=== PATIENT | male | born 1935 | race Caucasian/White ===

== ENCOUNTER 2017-05-12 14:11 | Emergency (ER) | payer OTHER ==
[2017-05-12 14:37] VITALS: BP 142/79; PULSE 77; RESP 16; TEMP 98.2; O2SAT 96
--- NOTE | 2017-05-12 14:51 | EDPHY ---
H & P Stated Complaint: L armpit lesion Time Seen by Provider: 05/12/17 14:42 HPI/ROS: CHIEF COMPLAINT: Thrombosis HISTORY OF PRESENT ILLNESS: Patient is an 82-year-old man who comes to the emergency department complaining of a tender hemangioma. He has a history of lung cancer and is on hospice. He has a small hemangioma underneath his left arm. He developed pain in the hemangioma yesterday. It is not erythematous or warm draining. His son is a tier truck driver and saw a picture and suspects that has for thrombosed hemorrhage. His son suggested steroid or lidocaine cream and follow up with Dermatology. The patient is not had fevers. He otherwise to not feel ill. REVIEW OF SYSTEMS: Constitutional: denies: chills, fever, recent illness, recent injury EENTM: denies: blurred vision, double vision, nose congestion Respiratory: denies: cough, shortness of breath Cardiac: denies: chest pain, irregular heart rate, lightheadedness, palpitations Gastrointestinal/Abdominal: denies: abdominal pain, diarrhea, nausea, vomiting, blood streaked stools Genitourinary: denies: dysuria, frequency, hematuria, pain Musculoskeletal: denies: joint pain, muscle pain Skin: See HPI Neurological: denies: headache, numbness, paresthesia, tingling, dizziness, weakness Hematologic/Lymphatic: denies: blood clots, easy bleeding, easy bruising Immunologic/allergic: denies: HIV/AIDS, transplant EXAM: GENERAL: Well-appearing, well-nourished and in no acute distress. HEAD: Atraumatic, normocephalic. EYES: Pupils equal round and reactive to light, extraocular movements intact, sclera anicteric, conjunctiva are normal. ENT: TMs normal, nares patent, oropharynx clear without exudates. Moist mucous membranes. NECK: Normal range of motion, supple without lymphadenopathy or JVD. LUNGS: Breath sounds clear to auscultation bilaterally and equal. No wheezes rales or rhonchi. HEART: Regular rate and rhythm without murmurs, rubs or gallops. ABDOMEN: Soft, nontender, normoactive bowel sounds. No guarding, no rebound. No masses appreciated. BACK: No CVA tenderness, no spinal tenderness, step-offs or deformities EXTREMITIES: Normal range of motion, no pitting or edema. No clubbing or cyanosis. NEUROLOGICAL: Cranial nerves II through XII grossly intact. Normal speech, normal gait. 5/5 strength, normal movement in all extremities, normal sensation PSYCH: Normal mood, normal affect. SKIN: The patient has what appears to be a red mold that is firm under his left armpit. It is minimally tender. No surrounding erythema. No sign of abscess. No cellulitis. Source: Patient Exam Limitations: No limitations - Personal History Current Tetanus Diphtheria and Acellular Pertussis (TDAP): Unsure - Medical/Surgical History Hx Asthma: No Hx Chronic Respiratory Disease: No Hx Diabetes: No Hx Cardiac Disease: No Hx Renal Disease: No Hx Cirrhosis: No Hx Alcoholism: No Hx HIV/AIDS: No Hx Splenectomy or Spleen Trauma: No Other PMH: "possible lung CA", kidney lesions, hernia repair - Family History Significant Family History: No pertinent family hx - Social History Smoking Status: Former smoker Alcohol Use: Sober Drug Use: None Constitutional: Initial Vital Signs Temperature (C) 36.8 C 05/12/17 14:32 Heart Rate 77 05/12/17 14:32 Respiratory Rate 16 05/12/17 14:32 Blood Pressure 142/79 H 05/12/17 14:32 O2 Sat (%) 96 05/12/17 14:32 O2 Delivery Mode Room Air Allergies/Adverse Reactions: Benzodiazepines Allergy (Verified 07/24/14 10:35) Other-Enter Comments diltiazem HCl [From Cardizem] Allergy (Verified 05/03/15 06:22) SEDATION Allergy (Uncoded 07/24/14 10:35) Other-Enter Comments Home Medications: Medication Instructions Recorded HCTZ (RX) 05/03/15 Hydrocodone/APAP 5/325 [Avalon 1 tab PO Q4 PRN #20 tab 05/03/15 5/325 (RX)] Lidocaine [Lidocaine 4% cream] 15 gm TP BID PRN #1 cream..g. 05/12/17 Triamcinolone 0.1% [Triamcinolone 1 fabiano TP TID #1 cream 05/12/17 0.1% Cream] Medical Decision Making ED Course/Re-evaluation: The patient is here requesting lidocaine cream and steroid cream. I will give her prescription for this and he will follow up with Dermatology. We will relay this message to the hospice doctor as well. Differential Diagnosis: Partial list of the Differential diagnosis considered include but were not limited to; abscess, cellulitis, and thrombosis and although unlikely based on the history and physical exam, I also considered lymph node, fasciitis. I discussed these differential diagnoses and the plan with the patient as well as the usual and expected course. The patient understands that the diagnosis is provisional and that in medicine we are not always correct and that further workup is often warranted. Usual and customary warnings were given. All of the patient's questions were answered. The patient was instructed to return to the emergency department should the symptoms at all worsen or return, otherwise to followup with the physician as we discussed. Departure - Departure Disposition: Home, Routine, Self-Care Clinical Impression: Hemangioma Condition: Fair Instructions: Lidocaine (On the skin) Referrals: Arden Phillips MD [Primary Care Provider] - As per Instructions Prescriptions: Lidocaine [Lidocaine 4% cream] 15 gm TP BID PRN #1 cream..g. PRN Reason: Pain, Moderate Triamcinolone 0.1% [Triamcinolone 0.1% Cream] 1 fabiano TP TID #1 cream
== END 2017-05-12 15:10 | disposition home or self-care (01) ==
DX: D18.00 Hemangioma unspecified site (principal); Z87.891 Personal history of nicotine dependence